=== PATIENT | female | born 1970 | race Caucasian/White ===

== ENCOUNTER 2017-03-14 10:16 | Emergency (ER) | payer SELFPAY ==
--- NOTE | 2017-03-14 11:49 | ER Document Report ---
HPI - HPI Patient complains to provider of: cold for a week, right ear pain Onset: This morning Onset/Duration: Sudden Pain Level: 4 Context: 47 yo female wtih cold this past week, today has right ear pain. No fever. No chest pain or SOB. Associated Symptoms: None Exacerbated by: Denies Relieved by: Denies - ROS ROS below otherwise negative: Yes Systems Reviewed and Negative: Yes All other systems reviewed and negative - CONSTITUTIONAL Constitutional: REPORTS: Fever, Chills - EENT EENT: REPORTS: Sore Throat, Ear Pain - NEURO Neurology: REPORTS: Headache - RESPIRATORY Respiratory: REPORTS: Trouble Breathing, Coughing Past Medical History - General Information source: Patient - Social History Smoking Status: Current Every Day Smoker Chew tobacco use (# tins/day): No Frequency of alcohol use: None Drug Abuse: None Lives with: Family Family History: Reviewed & Not Pertinent Patient has suicidal ideation: No Patient has homicidal ideation: No - Medical History Medical History: Negative Renal/ Medical History: Denies: Hx Peritoneal Dialysis Surgical Hx: Negative Vertical Provider Document - CONSTITUTIONAL Agree With Documented VS: Yes Exam Limitations: No Limitations General Appearance: No Apparent Distress - HEENT HEENT: Normocephalic, Pharyngeal Erythema, Tympanic Membrane Bulging - right. negative: Conjuctival Injection Notes: left TM normal - NECK Neck: Supple. negative: Lymphadenopathy-Left, Lymphadenopathy-Right - RESPIRATORY Respiratory: Breath Sounds Normal, No Respiratory Distress O2 Sat by Pulse Oximetry: 96 - CARDIOVASCULAR Cardiovascular: Regular Rate, Regular Rhythm - MUSCULOSKELETAL/EXTREMETIES Musculoskeletal/Extremeties: MAEW, FROM - NEURO Level of Consciousness: Awake, Alert, Appropriate Course - Vital Signs Vital signs: Temp Pulse Resp BP Pulse Ox 98.3 F 85 20 166/99 H 96 03/14/17 10:28 03/14/17 10:28 03/14/17 10:28 03/14/17 10:28 03/14/17 10:28 Discharge - Discharge Clinical Impression: Right otitis media Qualifiers: Otitis media type: suppurative Chronicity: acute Recurrence: not specified as recurrent Spontaneous tympanic membrane rupture: without spontaneous rupture Qualified Code(s): H66.001 - Acute suppurative otitis media without spontaneous rupture of ear drum, right ear Condition: Good Disposition: HOME, SELF-CARE Instructions: Augmentin ([facility]), Otitis Media ([facility]), Warm Packs ([facility]) Additional Instructions: warm compress tylenol for pain augmentin for 1 week return to er if increased pain, swelling, fever, shortness of breath, chest pain ear recheck in 1 month Prescriptions: Amoxicillin/Potassium Clav [Augmentin 875-125 Tablet] 1 each PO BID #20 tablet Forms: Return to Work
[2017-03-14 12:29] VITALS: BP 165/95
== END 2017-03-14 12:29 | disposition home or self-care (01) ==
LOC: ER 10:16
DX: H66.001 Acute suppurative otitis media without spontaneous rupture of ear drum, right ear (principal); H92.01 Otalgia, right ear; J02.9 Acute pharyngitis, unspecified; R51 Headache; R06.00 Dyspnea, unspecified; R05 Cough; F17.200 Nicotine dependence, unspecified, uncomplicated; R50.9 Fever, unspecified
CPT/HCPCS: 99282